=== PATIENT | male | born 1960 ===

== ENCOUNTER 2019-09-24 15:17 | Emergency (ER) | payer OTHER ==
[~2019-09-24] VITALS: Ht 177.8 cm; Wt 95.3 kg
[2019-09-24] MEDS ORDERED: ADERAL (15:59)
== END 2019-09-24 18:17 | disposition home or self-care (01) ==
LOC: ER 15:17
DX: S61.022A Laceration with foreign body of left thumb without damage to nail, initial encounter (principal); W26.8XXA Contact with other sharp object(s), not elsewhere classified, initial encounter; Y93.89 Activity, other specified; Y92.89 Other specified places as the place of occurrence of the external cause; Y99.8 Other external cause status